=== PATIENT | male | born 1940 | race Caucasian/White ===

== ENCOUNTER → 2017-11-17 07:35 | Outpatient (CLI) | payer MEDICARE, OTHER, SELFPAY ==
[2017-11-17 08:22] LABS: Add Manual Diff / Slide Review NO; Basophils Percent Auto 1.4 % (0-2); Hematocrit 42.6 % (41-53); Hemoglobin 14.5 g/dL (13.5-17.5); Lymphocytes Percent Auto 27.1 % (25-40); Mean Corpuscular Hemoglobin 32.4 PG (26-34); Mean Corpuscular Volume 95.5 fL (80-100); Monocytes Percent Auto 11.7 % (3-14); Neutrophils Absolute Auto 2300 /uL (3000-5900); Neutrophils Percent Auto 47.8 % (50-75); Platelet Count 211 X10^3/uL (150-400); Red Blood Cell Count 4.47 X10^6/uL (4.5-5.9); Red Cell Distribution Width 13.8 % (11.6-14.8); White Blood Cell Count 4.8 X10^3/uL (4.5-11.0)
[2017-11-17 08:24] LABS: Hemoglobin A1C% w Est Avg Glu 6.7 % (4.0-6.0)
[2017-11-17 08:27] LABS: Alanine Aminotransferase 42 IU/L (21-72); Albumin 4.2 g/dL (3.5-5.0); Albumin Globulin Ratio 1.4 (1.0-2.8); Alkaline Phosphatase 63 U/L (38-126); Aspartate Aminotransferase 45 IU/L (17-59); BUN Creatinine Ratio 25.7 (6-22); Bilirubin Total 0.6 mg/dL (0.2-1.3); Blood Urea Nitrogen 18 mg/dL (9-20); Calcium 9.1 mg/dL (8.4-10.2); Carbon Dioxide 29 mmol/L (22-32); Chloride 101 mmol/L (98-107); Cholesterol 211 mg/dL (140-199); Estimated Glomerular Filt Rate > 60.0 mL/min (>60); Globulin 3.1 g/dL (1.7-4.1); Glucose 112 mg/dL (80-110); HEMOLYSIS < 15 (0-50); Potassium 4.1 mmol/L (3.4-5.1); Sodium 139 mmol/L (137-145); Total Protein 7.3 g/dL (6.3-8.2); Triglycerides 60 mg/dL (35-150)
[2017-11-17 08:43] LABS: HDL Cholesterol 120 mg/dL (40-60); LDL Cholesterol Calculated 79 mg/dL (<100)
[2017-11-17 08:50] LABS: Creatinine Urine Random 56.7 mg/dL
[2017-11-17 08:54] LABS: Microalbumi Creatinin Ratio Ur 10.5 ug/mg CR (<30); Microalbumin Urine Random < 0.6 mg/dL (0-1.6)
== END ==
PROVIDERS: PCP Internal Medicine; Visit Provider Internal Medicine
DX: E11.9 Type 2 diabetes mellitus without complications (principal); I10 Essential (primary) hypertension; E78.00 Pure hypercholesterolemia, unspecified
CPT/HCPCS: 36415; 80053; 80061; 82043; 82570; 83036; 85025

== ENCOUNTER → 2018-03-14 07:57 | Outpatient (CLI) | payer MEDICARE, OTHER, SELFPAY ==
[2018-03-14 09:25] LABS: Hemoglobin A1C% w Est Avg Glu 6.8 % (4.0-6.0)
[2018-03-14 09:54] LABS: BUN Creatinine Ratio 23.8 (6-22); Blood Urea Nitrogen 19 mg/dL (9-20); Calcium 9.5 mg/dL (8.4-10.2); Carbon Dioxide 28 mmol/L (22-32); Chloride 101 mmol/L (98-107); Estimated Glomerular Filt Rate > 60.0 mL/min (>60); Glucose 120 mg/dL (80-110); HEMOLYSIS < 15 (0-50); Potassium 4.5 mmol/L (3.4-5.1); Sodium 140 mmol/L (137-145)
== END ==
PROVIDERS: PCP Internal Medicine; Visit Provider Internal Medicine
DX: E11.9 Type 2 diabetes mellitus without complications (principal); I10 Essential (primary) hypertension
CPT/HCPCS: 36415; 80048; 83036

== ENCOUNTER → 2018-11-13 07:48 | Outpatient (CLI) | payer MEDICARE, OTHER, SELFPAY ==
[2018-11-13 08:31] LABS: Hemoglobin A1C% w Est Avg Glu 6.4 % (4.0-6.0)
[2018-11-13 09:08] LABS: Alanine Aminotransferase 20 IU/L (21-72); Albumin 3.8 g/dL (3.5-5.0); Albumin Globulin Ratio 1.4 (1.0-2.8); Alkaline Phosphatase 76 U/L (38-126); Aspartate Aminotransferase 24 IU/L (17-59); BUN Creatinine Ratio 24.3 (6-22); Bilirubin Total 0.7 mg/dL (0.2-1.3); Blood Urea Nitrogen 17 mg/dL (9-20); Calcium 9.2 mg/dL (8.4-10.2); Carbon Dioxide 28 mmol/L (22-32); Chloride 102 mmol/L (98-107); Cholesterol 241 mg/dL (140-199); Estimated Glomerular Filt Rate > 60.0 mL/min (>60); Globulin 2.7 g/dL (1.7-4.1); Glucose 143 mg/dL (80-110); HDL Cholesterol 104 mg/dL (40-60); HEMOLYSIS < 15 (0-50); LDL Cholesterol Calculated 126 mg/dL (<100); Potassium 4.6 mmol/L (3.4-5.1); Sodium 138 mmol/L (137-145); Total Protein 6.5 g/dL (6.3-8.2); Triglycerides 53 mg/dL (35-150)
== END ==
PROVIDERS: PCP Internal Medicine; Visit Provider Internal Medicine
DX: E11.9 Type 2 diabetes mellitus without complications (principal); I10 Essential (primary) hypertension; I48.2 Chronic atrial fibrillation; E78.00 Pure hypercholesterolemia, unspecified
CPT/HCPCS: 36415; 80053; 80061; 83036

== ENCOUNTER → 2019-10-15 08:01 | Outpatient (CLI) | payer MEDICARE, OTHER, SELFPAY ==
[2019-10-15 08:47] LABS: Hemoglobin A1C% w Est Avg Glu 6.7 % (4.0-6.0)
[2019-10-15 08:53] LABS: Alanine Aminotransferase 31 IU/L (<50); Albumin 4.3 g/dL (3.5-5.0); Albumin Globulin Ratio 1.4 (1.0-2.8); Alkaline Phosphatase 68 U/L (38-126); Aspartate Aminotransferase 42 IU/L (17-59); BUN Creatinine Ratio 19.4 (6-22); Bilirubin Total 0.5 mg/dL (0.2-1.3); Blood Urea Nitrogen 14 mg/dL (9-20); Calcium 9.5 mg/dL (8.4-10.2); Carbon Dioxide 28 mmol/L (22-32); Chloride 100 mmol/L (98-107); Cholesterol 284 mg/dL (140-199); Estimated Glomerular Filt Rate > 60.0 mL/min (>60); Glucose 173 mg/dL (80-110); HEMOLYSIS < 15 (0-50); Potassium 4.3 mmol/L (3.4-5.1); Sodium 137 mmol/L (137-145); Total Protein 7.3 g/dL (6.3-8.2); Triglycerides 71 mg/dL (35-150)
[2019-10-15 09:01] LABS: HDL Cholesterol 118 mg/dL (40-60); LDL Cholesterol Calculated 152 mg/dL (<100)
== END ==
PROVIDERS: PCP Internal Medicine; Referring Provider Internal Medicine; Visit Provider Internal Medicine
DX: E11.9 Type 2 diabetes mellitus without complications (principal); E78.00 Pure hypercholesterolemia, unspecified
CPT/HCPCS: 36415; 80053; 80061; 83036

== ENCOUNTER → 2019-12-04 11:31 | Outpatient (CLI) | payer MEDICARE, OTHER, SELFPAY ==
[2019-12-04 12:28] LABS: Add Manual Diff / Slide Review NO; Basophils Absolute Auto 100 /uL (0-100); Basophils Percent Auto 1.2 % (0-2); Eosinophils Absolute Auto 300 /uL (0-450); Eosinophils Percent Auto 6.6 % (2-4); Hematocrit 38.8 % (41-53); Lymphocytes Absolute Auto 1100 /uL (1100-4500); Lymphocytes Percent Auto 23.4 % (25-40); Mean Corpuscular HGB Conc 33.6 % (30-36); Mean Corpuscular Hemoglobin 31.8 PG (26-34); Mean Corpuscular Volume 94.9 fL (80-100); Monocytes Absolute Auto 600 /uL (0-900); Monocytes Percent Auto 13.1 % (3-14); Neutrophils Absolute Auto 2700 /uL (1500-7000); Neutrophils Percent Auto 55.7 % (50-75); Platelet Count 249 X10^3/uL (150-400); Red Blood Cell Count 4.09 X10^6/uL (4.5-5.9); Red Cell Distribution Width 14.8 % (11.6-14.8); White Blood Cell Count 4.9 X10^3/uL (4.5-11.0)
[2019-12-04 13:25] LABS: Alanine Aminotransferase 42 IU/L (<50); Albumin 3.7 g/dL (3.5-5.0); Albumin Globulin Ratio 1.4 (1.0-2.8); Alkaline Phosphatase 114 U/L (38-126); Aspartate Aminotransferase 42 IU/L (17-59); BUN Creatinine Ratio 26.2 (6-22); Bilirubin Total 0.5 mg/dL (0.2-1.3); Blood Urea Nitrogen 17 mg/dL (9-20); Calcium 9.3 mg/dL (8.4-10.2); Carbon Dioxide 27 mmol/L (22-32); Chloride 104 mmol/L (98-107); Estimated Glomerular Filt Rate > 60.0 mL/min (>60); Globulin 2.6 g/dL (1.7-4.1); Glucose 134 mg/dL (80-110); HEMOLYSIS < 15 (0-50); Potassium 4.1 mmol/L (3.4-5.1); Sodium 136 mmol/L (137-145); Total Protein 6.3 g/dL (6.3-8.2)
== END ==
PROVIDERS: PCP Internal Medicine; Referring Provider Internal Medicine; Visit Provider Internal Medicine
DX: E11.9 Type 2 diabetes mellitus without complications (principal); I10 Essential (primary) hypertension; A08.4 Viral intestinal infection, unspecified
CPT/HCPCS: 36415; 80053; 85025

== ENCOUNTER → 2022-03-11 09:26 | Outpatient (CLI) | payer MEDICARE, OTHER, SELFPAY ==
--- NOTE | 2022-03-11 09:29 | DI.CT.S_ITS ---
PROCEDURE: CT ABDOMEN PELVIS W CON INDICATIONS: Abnormal levels of other serum enzymes TECHNIQUE: After the administration of oral and IV contrast, axial sections were acquired from the lung bases to the pubic symphysis. Coronal and sagittal reformats were performed. For radiation dose reduction, the following was used: automated exposure control, adjustment of mA and/or kV according to patient size. COMPARISON: None. FINDINGS: Image quality: Excellent. Lung bases: Bibasilar dependent atelectasis and scarring is seen. 7 mm solid nodule is seen in lateral aspect of right lung base series 3, image 15. No pleural effusion or pneumothorax. Heart: No significant findings. ABDOMEN: Liver: Liver is normal in size. There are suggestion of at least 2 well-circumscribed hypodense areas scattered in right hepatic lobe measures 5 and 8 mm in size series 2, image 15. Gallbladder: Calcified stones are seen in dependent portion of gallbladder lumen. No gallbladder wall thickening or pericholecystic fluid. Biliary ducts: There is significant intrahepatic biliary ductal dilatation and dilatation of common hepatic duct. Common bile duct is not distended. No gross choledocholithiasis is seen. Pancreas: Unremarkable. Spleen: Spleen is normal in size. Ill-defined area of heterogeneous contrast enhancement involving splenic parenchyma is seen series 2, image 21. Adrenal Glands: Unremarkable. Kidneys and Ureters: 5.4 x 4.2 cm simple appearing cyst is seen in upper pole right kidney. No hydronephrosis or hydroureter. Stomach and Bowel: There is significant fecal stasis throughout the colon extending to rectum. No bowel obstruction. There is suggestion of diffuse gastric wall thickening, underlying gastric wall mass cannot be entirely excluded. Mild small bowel wall thickening throughout in mid to lower abdomen is seen. No gross colonic wall thickening. No abscess collection. Peritoneum: No abnormal intraperitoneal fluid. No free air. Ventral Wall: No hernia. Abdominal Nodes: No retroperitoneal or mesenteric adenopathy by size criteria. Vessels: Aorta and inferior vena cava are normal in size. Moderate atherosclerotic calcifications in abdominal aorta is noted. PELVIS: Pelvic Organs: Mildly enlarged prostate gland with mass effect on floor of urinary bladder is noted.. Bladder: There are areas of bladder wall thickening measures up to 7 mm in thickness. No definite bladder wall mass is seen. Pelvic Nodes: No enlarged lymph nodes. Miscellaneous: No inguinal hernias are seen. Bones: No suspicious bony lesion. 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 [id number] dextroscoliosis of lumbar spine centered at L2 level is seen. IMPRESSION: 1. Marked intrahepatic biliary ductal dilatation without significant common bile duct dilatation. Finding is concerning for malignant process such as cholangiocarcinoma versus primary sclerosing cholangitis. Suggest MRCP or ERCP for further evaluation of the biliary systems. 2. At least 2 well-circumscribed subcentimeter hypodensities in right hepatic lobe and may represent small cysts. 3. Cholelithiasis without CT evidence of acute cholecystitis. Pancreas and pancreatic duct shows no gross abnormality. Questionable heterogeneous contrast enhancement within splenic parenchyma, no definite splenic lesion is seen. 4. Diffuse gastric wall thickening and segmental small bowel wall thickening and hyperemia which may indicate gastroenteritis. No definite gastric wall mass is seen. No colonic wall thickening. Mild constipation. 5. No renal stones or hydronephrosis. Enlarged prostate gland with mild mass effect on floor of urinary bladder. Mild asymmetric bladder wall thickening, no definite bladder wall mass is seen. Urological correlation is recommended. 6. Bibasilar scarring/atelectasis. 7 mm solid nodule is seen in lateral right lung base. CT of chest can be done for further evaluation of bilateral lung dos santos. Dictated by: J Luis Vuong M.D. on 03/11/2022 at 13:17 Approved by: J Luis Vuong M.D. on 03/11/2022 at 14:23
== END ==
PROVIDERS: PCP Physician Assistant; Referring Provider Physician Assistant; Visit Provider Physician Assistant
DX: K83.8 Other specified diseases of biliary tract (principal); R91.1 Solitary pulmonary nodule; R74.8 Abnormal levels of other serum enzymes; K80.20 Calculus of gallbladder without cholecystitis without obstruction; K59.00 Constipation, unspecified; N40.0 Benign prostatic hyperplasia without lower urinary tract symptoms
CPT/HCPCS: 74177; Q9967

== ENCOUNTER → 2022-03-13 08:33 | Outpatient (CLI) | payer MEDICARE, OTHER, SELFPAY ==
--- NOTE | 2022-03-13 08:35 | DI.CT.S_ITS ---
PROCEDURE: CT CHEST WO CON INDICATIONS: Solitary pulmonary nodule TECHNIQUE: Noncontrast 2.0-2.5 mm thick sections acquired from the pulmonary apices to the posterior costophrenic angles. 7 mm thick axial MIP and 5 mm coronal and sagittal reformats were then acquired. A low radiation dose technique was utilized. COMPARISON: [facility], CT, CT ABDOMEN PELVIS W CON, 03/11/2022, 11:35. FINDINGS: Image quality: Diagnostic, given the low radiation dose technique. Lungs and pleura: Right costophrenic angle nodular opacity measuring 0.7 cm, (3/251). This is less defined on the coronal and sagittal reformats. There is curvilinear opacity in the lingula and left lung base. No mass. Small calcified granuloma. Mediastinum: Heart size is normal. Three-vessel coronary artery calcifications. No pericardial effusion. No mediastinal adenopathy by size criteria. Thoracic aorta and central pulmonary arteries are normal in size. Esophagus is normal in caliber. No hiatal hernia. Bones and chest wall: No suspicious bony lesions. No vertebral body compression fractures. No axillary or supraclavicular adenopathy by size criteria. Thyroid gland is unremarkable. Abdomen: Small hypodensities in the liver which do not appear branching. These could represent small cysts as seen on prior contrast-enhanced CT. There is intrahepatic biliary ductal dilatation. Oral contrast in the colon. IMPRESSION: 1. Right lower lobe nodular opacity measuring 0.7 cm. This could represent atelectasis rather than a pulmonary nodule. -Recommend follow-up CT chest in 6-12 months could be considered. 2. No pulmonary mass or additional pulmonary nodules. 3. No pleural effusion. 4. Intrahepatic biliary ductal dilatation. Fleischner Society criteria for SOLID lung nodule followup. Nodule size (mm)Low-risk patientHigh-risk patient<6 (single or multiple)No routine followup.Optional CT at 12 months. 6-8 (single or multiple)CT at 6-12 months, then optional CT at 18-24 mo.CT at 6-12 months, then CT at 18-24 months. >8 (single)CT at 3 months, PET-CT, or biopsy. Same as for low-risk pts. >8 (multiple)CT at 3-6 months, then optional CT at 18-24 mo.CT at 3-6 months, then CT at 18-24 months. Fleischner Society criteria for SUB-SOLID lung nodule followup. Solitary pure ground-glass nodules<6 mm (ground glass or part solid)No followup needed. 6 mm or larger (ground glass)CT at 6-12 months to confirm persistence, then CT every 2 years until 5 years.6 mm or larger (part solid)CT at 3-6 months to confirm persistence, then annual CT until 5 years if unchanged and solid component remains <6 mm. Multiple sub-solid nodules<6 mmCT at 3-6 months, then CT consider at 2 & 4 years for high risk patients. [address] at 3-6 months. Subsequent management based on most suspicious lesions. Recommendations do not apply to lung cancer screening, patients with immunosuppression, or patients with known primary cancer. Dictated by: Toi Jordan M.D. on 03/13/2022 at 8:40 Approved by: Toi Jordan M.D. on 03/13/2022 at 8:49
== END ==
PROVIDERS: PCP Physician Assistant; Referring Provider Physician Assistant; Visit Provider Physician Assistant
DX: R91.1 Solitary pulmonary nodule (principal); K83.8 Other specified diseases of biliary tract
CPT/HCPCS: 71250